=== PATIENT | female | born 1935 | race Caucasian/White ===

== ENCOUNTER 2021-01-09 10:52 | Inpatient (IN) ==
[2021-01-09] MEDS ORDERED: ALUMINUM/MAGNES/SIMETH MAX STR 30 ML UDCUP PO PRN (16:56)
[2021-01-09] MEDS ORDERED: GLUCAGON 1 MG VIAL IM PRN (16:56)
[2021-01-09] MEDS ORDERED: ACETAMINOPHEN 325 MG TABLET PO PRN (16:56)
[2021-01-09] MEDS ORDERED: DEXTROSE 50% 25 GM/50 ML VIAL IV PRN (16:56)
[2021-01-09] MEDS ORDERED: ONDANSETRON 4 MG/2 ML VIAL IV PRN (16:56)
[2021-01-09] MEDS ORDERED: MORPHINE 4 MG/1 ML VIAL IV PRN (16:56)
[2021-01-09 17:32] LABS: Basophils % 0.3 % (0.0-0.8); Eosinophils # 0.2 10*3/uL (0.0-0.87); Eosinophils % 2.4 % (0.00-10.9); Hematocrit 40.1 VOL% (35.7-47.0); Hemoglobin 13.2 GM/DL (12.0-16.0); Immature Granulocytes % 0.3 %; Immature Granulocytes Absolute 0.02 #; Lymphocytes # 1.5 10*3/uL (1.4-4.0); Lymphocytes % 23.2 % (21.3-54.2); Mean Corpuscular HGB Conc 32.9 GM/DL (32-36); Mean Corpuscular Volume 91.1 FL (87-102); Mean Platelet Volume 10.6 FL (9.6-12.0); Monocytes % 8.8 % (1.7-12.7); Platelet Count 250 T/CUMM (130-400); Red Cell Distribution Width 12.9 % (9.3-17.3); White Blood Count 6.4 T/CUMM (4-12)
[2021-01-09 17:40] LABS: Albumin 3.4 G/DL (3.4-5.0); Bilirubin,Total 2.1 MG/DL (0.2-1.0); Calcium 9.1 MG/DL (8.5-10.1); Osmolality,Calculated 281.5 MOS/KG (273-304); Risk Ratio 3.39; Total Protein 6.9 G/DL (5.0-7.5); VLDL CHOLESTEROL 26.6 MG/DL
[2021-01-09 19:22] LABS: PT Patient Result 11.2 SECS (9.8-11.9)
[2021-01-09] MEDS: INSULIN REGULAR 100 UNIT/ML SUBCUT SCH (20:18)
[2021-01-09] MEDS: SODIUM CHLORIDE 0.9% 1,000 ML IV SCH (22:22)
[2021-01-10] MEDS: cloNIDine 0.1 MG TABLET PO PRN (00:04)
[2021-01-10] MEDS: LEVOTHYROXINE 100 MCG TABLET PO SCH (07:32)
[2021-01-10 07:50] LABS: Troponin I < 0.015 NG/ML (0.00-0.045)
[2021-01-10] MEDS ORDERED: PANTOPRAZOLE 40 MG TABLET PO SCH (09:00)
[2021-01-10 09:08] LABS: Albumin 3.2 G/DL (3.4-5.0); Bilirubin,Direct 0.6 MG/DL (0.0-0.20); Bilirubin,Indirect 0.5 MG/DL (0.0-1.0); Bilirubin,Total 1.1 MG/DL (0.2-1.0); Total Protein 7.3 G/DL (5.0-7.5)
[2021-01-10] MEDS: INSULIN REGULAR 100 UNIT/ML SUBCUT SCH ×4 (09:39→21:50)
[2021-01-10] MEDS: PANTOPRAZOLE 40 MG TABLET PO SCH ×2 (12:27→21:45)
[2021-01-10] MEDS: POLYETHYLENE GLYCOL POWDER 17 GM PACK PO SCH ×2 (12:27→21:45)
[2021-01-10] MEDS: SODIUM CHLORIDE 0.9% 1,000 ML IV SCH (12:29)
[2021-01-10] MEDS: DILTIAZEM CD 180 MG CAPSULE PO SCH (16:10)
[2021-01-10] MEDS: carvediloL 25 MG TABLET PO SCH (16:10)
[2021-01-11] MEDS: SODIUM CHLORIDE 0.9% 1,000 ML IV SCH ×2 (03:44→17:20)
[2021-01-11 06:34] LABS: Basophils % 0.4 % (0.0-0.8); Eosinophils # 0.2 10*3/uL (0.0-0.87); Eosinophils % 2.1 % (0.00-10.9); Hematocrit 41.6 VOL% (35.7-47.0); Hemoglobin 14.2 GM/DL (12.0-16.0); Immature Granulocytes % 0.4 %; Immature Granulocytes Absolute 0.03 #; Lymphocytes # 1.9 10*3/uL (1.4-4.0); Lymphocytes % 24.8 % (21.3-54.2); Mean Corpuscular HGB Conc 34.1 GM/DL (32-36); Mean Corpuscular Volume 89.5 FL (87-102); Mean Platelet Volume 10.7 FL (9.6-12.0); Monocytes % 8.7 % (1.7-12.7); Neutrophils % 63.6 % (38.7-73.9); Platelet Count 297 T/CUMM (130-400); Red Blood Count 4.65 MC/CUMM (3.8-5.5); Red Cell Distribution Width 12.9 % (9.3-17.3); White Blood Count 7.6 T/CUMM (4-12)
[2021-01-11 06:51] LABS: Osmolality,Calculated 282.3 MOS/KG (273-304); Potassium 4.2 MMOL/L (3.5-5.1)
[2021-01-11 06:54] LABS: Albumin 3.3 G/DL (3.4-5.0); Bilirubin,Direct 0.34 MG/DL (0.0-0.20); Bilirubin,Indirect 1.4 MG/DL (0.0-1.0); Bilirubin,Total 1.7 MG/DL (0.2-1.0); Total Protein 7.4 G/DL (5.0-7.5)
[2021-01-11] MEDS: LEVOTHYROXINE 100 MCG TABLET PO SCH (07:56)
[2021-01-11] MEDS: INSULIN REGULAR 100 UNIT/ML SUBCUT SCH ×4 (07:56→22:06)
[2021-01-11] MEDS: POLYETHYLENE GLYCOL POWDER 17 GM PACK PO SCH ×2 (08:24→22:07)
[2021-01-11] MEDS: PANTOPRAZOLE 40 MG TABLET PO SCH ×2 (08:24→22:07)
[2021-01-11] MEDS ORDERED: INDOMETHACIN SUPP 50 MG SUPP RECTAL ONE (08:29)
[2021-01-11] MEDS: carvediloL 25 MG TABLET PO SCH ×2 (08:57→17:05)
[2021-01-11] MEDS: DILTIAZEM CD 180 MG CAPSULE PO SCH (08:58)
[2021-01-11 09:07] LABS: PT Patient Result 11.1 SECS (9.8-11.9)
[2021-01-11] MEDS: LACTATED RINGERS 1,000 ML IV SCH (09:29)
[2021-01-11] MEDS ORDERED: PHENYLEPHRINE 1 MG/10 ML SYRINGE IV ONE (09:41)
[2021-01-11] MEDS ORDERED: LIDOCAINE 2% 5 ML VIAL ONE (09:41)
[2021-01-11] MEDS ORDERED: propofoL 200 MG/20 ML VIAL IV ONE (09:41)
[2021-01-11] MEDS ORDERED: fentaNYL 100 MCG/2 ML VIAL ONE (09:41)
[2021-01-11] MEDS ORDERED: ROCURONIUM 50 MG/5 ML VIAL IV ONE (09:41)
[2021-01-11] MEDS ORDERED: ONDANSETRON 4 MG/2 ML VIAL ONE (09:41)
[2021-01-11] MEDS ORDERED: SEVOFLURANE 1 UNIT/15 MINUTE INH ONE (09:41)
[2021-01-11] MEDS ORDERED: ePHEDrine 50 MG/ML VIAL ONE (09:59)
[2021-01-11] MEDS: cloNIDine 0.1 MG TABLET PO PRN (17:06)
[2021-01-11] MEDS ORDERED: PHENOL 1.4% THROAT SPRAY 177 ML BOTTLE PO PRN (17:55)
[2021-01-11] MEDS ORDERED: LABETALOL 20 MG/4 ML SYRINGE IV PRN (18:11)
[2021-01-12 06:12] LABS: Basophils % 0.2 % (0.0-0.8); Eosinophils # 0.2 10*3/uL (0.0-0.87); Eosinophils % 1.6 % (0.00-10.9); Hematocrit 38.8 VOL% (35.7-47.0); Immature Granulocytes % 0.4 %; Immature Granulocytes Absolute 0.05 #; Lymphocytes # 1.8 10*3/uL (1.4-4.0); Lymphocytes % 14.5 % (21.3-54.2); Mean Corpuscular HGB Conc 33.5 GM/DL (32-36); Mean Corpuscular Volume 91.7 FL (87-102); Mean Platelet Volume 10.3 FL (9.6-12.0); Monocytes % 6.1 % (1.7-12.7); Neutrophils % 77.2 % (38.7-73.9); Platelet Count 277 T/CUMM (130-400); Red Blood Count 4.23 MC/CUMM (3.8-5.5); White Blood Count 12.1 T/CUMM (4-12)
[2021-01-12] MEDS ORDERED: VANCOMYCIN INJ 750 MG in SODIUM CHLORIDE 0.9% 250 ML IV ONE (06:30)
[2021-01-12 06:36] LABS: Albumin 3.3 G/DL (3.4-5.0); Bilirubin,Total 1.5 MG/DL (0.2-1.0); Calcium 8.5 MG/DL (8.5-10.1); Osmolality,Calculated 283.3 MOS/KG (273-304); Potassium 3.9 MMOL/L (3.5-5.1)
[2021-01-12] MEDS: LEVOTHYROXINE 100 MCG TABLET PO SCH (07:12)
[2021-01-12] MEDS: INSULIN REGULAR 100 UNIT/ML SUBCUT SCH ×3 (08:32→15:41)
[2021-01-12] MEDS: carvediloL 25 MG TABLET PO SCH ×2 (09:17→17:11)
[2021-01-12] MEDS: DILTIAZEM CD 180 MG CAPSULE PO SCH (09:17)
[2021-01-12] MEDS: LACTATED RINGERS 1,000 ML IV SCH (10:31)
[2021-01-12] MEDS: POLYETHYLENE GLYCOL POWDER 17 GM PACK PO SCH ×2 (10:32→22:11)
[2021-01-12] MEDS: PANTOPRAZOLE 40 MG TABLET PO SCH ×2 (10:33→22:10)
[2021-01-12] MEDS ORDERED: LIDOCAINE 2% 5 ML VIAL ONE (16:31)
[2021-01-12] MEDS ORDERED: propofoL 200 MG/20 ML VIAL IV ONE (16:31)
[2021-01-12] MEDS ORDERED: ONDANSETRON 4 MG/2 ML VIAL ONE (16:31)
[2021-01-12] MEDS ORDERED: fentaNYL 100 MCG/2 ML VIAL ONE (16:31)
[2021-01-12] MEDS ORDERED: ROCURONIUM 50 MG/5 ML VIAL IV ONE (16:31)
[2021-01-12] MEDS ORDERED: ETOMIDATE 40 MG/20 ML VIAL IV ONE (16:31)
[2021-01-12] MEDS ORDERED: TISSUE ADHESIVE 1 EACH APPLICATOR TOP ONE (17:31)
[2021-01-12] MEDS ORDERED: SEVOFLURANE 1 UNIT/15 MINUTE INH ONE (17:31)
[2021-01-12] MEDS ORDERED: GLYCOPYRROLATE 0.4 MG/2 ML VIAL ONE (17:31)
[2021-01-12] MEDS ORDERED: NEOSTIGMINE 10 MG/10 ML VIAL ONE (17:31)
[2021-01-12] MEDS: SODIUM CHLORIDE 0.9% 1,000 ML IV SCH (18:46)
[2021-01-12] MEDS ORDERED: MORPHINE 10 MG/1 ML VIAL ONE (19:29)
[2021-01-12] MEDS: MORPHINE 10 MG/1 ML VIAL IV PRN ×2 (19:34→19:39)
[2021-01-13] MEDS: INSULIN REGULAR 100 UNIT/ML SUBCUT SCH ×2 (00:01→07:30)
[2021-01-13] MEDS: SODIUM CHLORIDE 0.9% 1,000 ML IV SCH (02:00)
[2021-01-13 05:57] LABS: Basophils % 0.3 % (0.0-0.8); Eosinophils # 0.2 10*3/uL (0.0-0.87); Eosinophils % 2.8 % (0.00-10.9); Hematocrit 38.4 VOL% (35.7-47.0); Hemoglobin 12.2 GM/DL (12.0-16.0); Immature Granulocytes % 0.5 %; Immature Granulocytes Absolute 0.04 #; Lymphocytes # 1.7 10*3/uL (1.4-4.0); Lymphocytes % 19.3 % (21.3-54.2); Mean Corpuscular HGB Conc 31.8 GM/DL (32-36); Mean Corpuscular Volume 94.1 FL (87-102); Mean Platelet Volume 10.2 FL (9.6-12.0); Monocytes % 7.5 % (1.7-12.7); Neutrophils % 69.6 % (38.7-73.9); Platelet Count 224 T/CUMM (130-400); Red Blood Count 4.08 MC/CUMM (3.8-5.5); Red Cell Distribution Width 12.7 % (9.3-17.3); White Blood Count 8.6 T/CUMM (4-12)
[2021-01-13 06:29] LABS: Albumin 2.9 G/DL (3.4-5.0); Bilirubin,Direct 0.42 MG/DL (0.0-0.20); Bilirubin,Indirect 0.7 MG/DL (0.0-1.0); Bilirubin,Total 1.1 MG/DL (0.2-1.0); Calcium 8.3 MG/DL (8.5-10.1); Osmolality,Calculated 283.8 MOS/KG (273-304); Potassium 3.5 MMOL/L (3.5-5.1); Total Protein 6.3 G/DL (5.0-7.5)
[2021-01-13] MEDS: LEVOTHYROXINE 100 MCG TABLET PO SCH (06:44)
[2021-01-13] MEDS: carvediloL 25 MG TABLET PO SCH (09:31)
[2021-01-13] MEDS: DILTIAZEM CD 180 MG CAPSULE PO SCH (09:31)
[2021-01-13] MEDS: PANTOPRAZOLE 40 MG TABLET PO SCH (09:31)
[2021-01-13 11:26] VITALS: BP 164/62
[2021-01-13] MEDS: POLYETHYLENE GLYCOL POWDER 17 GM PACK PO SCH (11:31)
== END 2021-01-13 11:45 | disposition home health service (06) | DRG 419 ==
LOC: SUATTDRO 13:11 → N.3E 13:11
PROVIDERS: ADMIT Internal Medicine; ATTEND Internal Medicine
PROC: ERCPWSP (ICD-10-PCS; 2021-01-11 09:05)
PROC: LAPCHOL (2021-01-12 17:40)